=== PATIENT | female | born 1980 ===

== ENCOUNTER 2017-02-12 13:22 | Emergency (ER) | payer BC, MEDICAID ==
[2017-02-12 13:22] VITALS: BMI 19.8
[2017-02-12 13:26] VITALS: BP 111/75; TEMP 98.9
--- NOTE | 2017-02-12 13:47 | C.PDOC ---
History Of Present Illness 36 yo female come in for evaluation of pain on urination gradually developed for psat few days. Pt reports, today noted blood in urine. Otherwise, pt denies fever, chills, abd. apin, N/V/D, back pain, vaginal irritation or discharges. Ambulate to Ed for evaluation, not in any apparent distress. Time Seen by Provider: 02/12/17 13:36 Chief Complaint (Nursing): Female Genitourinary History Per: Patient Past Medical History Reviewed: Historical Data, Nursing Documentation, Vital Signs Vital Signs: Last Vital Signs Temp 98.9 F 02/12/17 13:24 Pulse 90 02/12/17 13:24 Resp 16 02/12/17 13:24 BP 111/75 02/12/17 13:24 Pulse Ox 100 02/12/17 13:47 - Medical History PMH: No Chronic Diseases Surgical History: Appendectomy (2014) - [employer] Procedures INJECT/INFUSE NEC (12/11/06) LAPAROSCOP APPENDECTOMY (09/10/13) Family History: States: Unknown Family Hx - Social History Hx Tobacco Use: No Hx Alcohol Use: No Hx Substance Use: No - Immunization History Hx Tetanus Toxoid Vaccination: No Hx Influenza Vaccination: No Hx Pneumococcal Vaccination: No Review Of Systems Except As Marked, All Systems Reviewed And Found Negative. Constitutional: Negative for: Fever, Chills ENT: Negative for: Throat Pain Gastrointestinal: Negative for: Nausea, Vomiting, Abdominal Pain, Diarrhea Genitourinary: Positive for: Dysuria, Frequency, Hematuria. Negative for: Vaginal Discharge, Vaginal Bleeding Musculoskeletal: Negative for: Back Pain Skin: Negative for: Rash Neurological: Negative for: Weakness, Numbness, Headache Physical Exam - Physical Exam Appears: Well, No Acute Distress Skin: Normal Color, Warm, Dry, No Rash Eye(s): bilateral: PERRL Nose: No Flaring, No Discharge Oral Mucosa: Moist Throat: No Erythema Neck: Supple Cardiovascular: Rhythm Regular Respiratory: No Decreased Breath Sounds, No Accessory Muscle Use, No Stridor Gastrointestinal/Abdominal: Soft, Tenderness (mild suprapubic), No Distention, No Guarding Back: No CVA Tenderness Extremity: No Swelling Neurological/Psych: Oriented x3, Normal Speech ED Course And Treatment O2 Sat by Pulse Oximetry: 100 Pulse Ox Interpretation: Normal Progress Note: On re-evaluation, pt is afebrile, hemodynamicaly stable. Non- toxic. Tolerate Po well in ED. ENT: no acute findings. neck: Supple. ABd: benign. Back: (-) CVA tenderness. UA reults review and c/w UTI. UCx-pending. Pt advised and ref. to F/u with PMD, GLOBAL LEAD in 2-3 days for re-eavl. return if any new changes. Disposition Counseled Patient/Family Regarding: Studies Performed, Diagnosis, Need For Followup, Rx Given - Disposition [facility] Disposition: HOME/ ROUTINE Disposition Time: 14:08 Condition: STABLE Additional Instructions: ENCOURAGE FLUIDS TAKE MEDICATION PRESCRIBED CRANBERRY SUPPLEMENT FOLLOW UP WITH GLOBAL LEAD IN 2-3 DAYS FOR RE-EVALUATION. RETURN TO ED IF ANY WORSENING OR NEW CHANGES. Prescriptions: Cranberry Fruit Extract [Cranberry] 500 mg PO BID #14 capsule Nitrofurantoin Macrocrystals [Macrobid] 1 cap PO BID #14 cap Phenazopyridine [Phenazopyridine HCl] 200 mg PO Q12 #6 tab Instructions: Urinary Tract Infection in Women (ED) Forms: [facility] (Kazakh) - Clinical Impression Clinical Impression: UTI (urinary tract infection)
[2017-02-12 14:05] LABS: RBC URINE 91 /hpf (0-3); URINE BACTERIA OCC (<OCC); URINE BILIRUBIN NEGATIVE (NEGATIVE); URINE BLOOD 3+ (NEGATIVE); URINE COLOR Yellow (YELLOW); URINE GLUCOSE (UA) NORMAL (Normal); URINE KETONE TRACE mg/dL (NEGATIVE); URINE LEUKOCYTE ESTERASE 3+ Leu/uL (Negative); URINE PROTEIN 2+ mg/dL (NEGATIVE); URINE UROBILINOGEN NORMAL mg/dL (0.2-1.0); WBC URINE 481 /hpf (0-5)
[2017-02-12 14:45] VITALS: PULSE 82; RESP 18; O2SAT 99
== END 2017-02-12 14:45 | disposition home or self-care (01) ==
LOC: C.ER 13:22
DX: N39.0 Urinary tract infection, site not specified (principal)

== ENCOUNTER 2017-06-15 18:12 | Emergency (ER) | payer BC, MEDICAID ==
[2017-06-15 18:12] VITALS: BMI 19.8
--- NOTE | 2017-06-15 19:03 | C.PDOC ---
History Of Present Illness 36 y/o female complains of fever, chills, cough, headache, and body aches x 1 day. Denies sore throat, n/v/d. neck stiffness. Time Seen by Provider: 06/15/17 18:47 Chief Complaint (Nursing): Flu-like Symptoms History Per: Patient History/Exam Limitations: no limitations Onset/Duration Of Symptoms: Days Current Symptoms Are (Timing): Still Present Associated Symptoms: Fever, Chills. denies: Nausea, Vomiting, Diarrhea Severity: Moderate Past Medical History Reviewed: Historical Data, Nursing Documentation, Vital Signs Vital Signs: Last Vital Signs Temp 102 F H 06/15/17 19:07 Pulse 118 H 06/15/17 19:07 Resp 16 06/15/17 19:07 BP 103/65 06/15/17 19:07 Pulse Ox 99 06/15/17 19:16 - Medical History PMH: No Chronic Diseases Surgical History: Appendectomy (2014) - [employer] Procedures INJECT/INFUSE NEC (12/11/06) LAPAROSCOP APPENDECTOMY (09/10/13) Family History: States: Unknown Family Hx - Social History Hx Tobacco Use: No Hx Alcohol Use: No Hx Substance Use: No - Immunization History Hx Tetanus Toxoid Vaccination: No Hx Influenza Vaccination: No Hx Pneumococcal Vaccination: No Review Of Systems Constitutional: Positive for: Fever, Chills, Malaise ENT: Negative for: Throat Pain Respiratory: Negative for: Cough Gastrointestinal: Negative for: Nausea, Vomiting, Abdominal Pain, Diarrhea Neurological: Negative for: Headache Physical Exam - Physical Exam Appears: Non-toxic, No Acute Distress, Other (very uncomfortable) Skin: Warm (hot), Dry Head: Atraumatic, Normacephalic Eye(s): bilateral: Normal Inspection Ear(s): Bilateral: Normal Nose: No Discharge Oral Mucosa: Moist Throat: No Erythema, No Exudate Neck: Supple Chest: Symmetrical, No Tenderness Cardiovascular: Rhythm Irregular (tachycardiac), No Murmur Respiratory: No Decreased Breath Sounds, No Wheezing Gastrointestinal/Abdominal: Soft, No Tenderness Neurological/Psych: Oriented x3, Normal Speech, Normal Cognition, Normal Motor, Normal Sensation ED Course And Treatment O2 Sat by Pulse Oximetry: 99 (RA) Pulse Ox Interpretation: Normal Medical Decision Making Medical Decision Making: pt with flu like symptomss x 1 days, d/c with tamiflu Disposition Counseled Patient/Family Regarding: Diagnosis, Need For Followup, Rx Given - Disposition Referrals: Kuldeep Paul, YULIA, PORTFOLIO ANALYST [Advanced Practice Nurse] - Disposition: HOME/ ROUTINE Disposition Time: 19:13 Condition: STABLE Additional Instructions: Drink lots of fluids, lots of bed rest. Take Tylenol or motrin every 4-6 hours for pain or fever. Get a thermometer to check temperature. Take tamiflu as prescribed. Follow up with Dr Paul in a few days. 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 - Scribe Statement The provider has reviewed the documentation as recorded by the Teodoro Church Provider Attestation All medical record entries made by the Carolyneibtony were at my direction and personally dictated by me. I have reviewed the chart and agree that the record accurately reflects my personal performance of the history, physical exam, medical decision making, and the department course for this patient. I have also personally directed, reviewed, and agree with the discharge instructions and disposition.
[2017-06-15 19:07] VITALS: BP 103/65; PULSE 118; RESP 16; TEMP 102
[2017-06-15 19:14] VITALS: O2SAT 99
== END 2017-06-15 19:21 | disposition home or self-care (01) ==
LOC: C.ER 18:12
DX: J11.1 Influenza due to unidentified influenza virus with other respiratory manifestations (principal)

== ENCOUNTER 2017-06-18 17:46 | Emergency (ER) | payer BC, MEDICAID ==
[2017-06-18 17:56] VITALS: BP 108/69; PULSE 113; RESP 18; TEMP 100.3; O2SAT 100; BMI 21.4
--- NOTE | 2017-06-18 18:46 | C.PDOC ---
History Of Present Illness 36 year old female presents to the emergency department complaining of fever and body aches for the past 4 days. Patient took Motrin and Tylenol relieving her fever. Reports fever having returned after the third day of using Tamiflu. Denies any vomiting, diarrhea, or shortness of breath. Patient has had no recent travel or sick contacts. PMD: Dr. Kuldeep Paul Chief Complaint (Nursing): Flu-like Symptoms History Per: Patient History/Exam Limitations: no limitations Onset/Duration Of Symptoms: Days (x4) Current Symptoms Are (Timing): Still Present Associated Symptoms: Fever Past Medical History Reviewed: Historical Data, Nursing Documentation, Vital Signs Vital Signs: Last Vital Signs Temp 100.3 F H 06/18/17 17:50 Pulse 113 H 06/18/17 17:50 Resp 18 06/18/17 17:50 BP 108/69 06/18/17 17:50 Pulse Ox 100 06/18/17 18:46 - Medical History PMH: No Chronic Diseases Surgical History: App[facility] (2014), [place] [facility] Procedures INJECT/INFUSE NEC (12/11/06) LAPAROSCOP APPENDECTOMY (09/10/13) Family History: States: Unknown Family Hx - Social History Hx Tobacco Use: No Hx Alcohol Use: No Hx Substance Use: No - Immunization History Hx Tetanus Toxoid Vaccination: No Hx Influenza Vaccination: No Hx Pneumococcal Vaccination: No Review Of Systems Except As Marked, All Systems Reviewed And Found Negative. Constitutional: Positive for: Fever, Other (Body Aches) Cardiovascular: Negative for: Chest Pain Respiratory: Negative for: Shortness of Breath Gastrointestinal: Negative for: Nausea, Vomiting, Diarrhea Physical Exam - Physical Exam Appears: Non-toxic, No Acute Distress Skin: Normal Color, Warm, Dry Head: Atraumatic, Normacephalic Eye(s): bilateral: Normal Inspection, PERRL, EOMI Nose: Normal Throat: Normal Neck: Normal Cardiovascular: Rhythm Regular, No Murmur Respiratory: Normal Breath Sounds, No Accessory Muscle Use, No Wheezing Gastrointestinal/Abdominal: Normal Exam, No Tenderness, No Distention Back: Normal Inspection Extremity: Normal ROM Neurological/Psych: Oriented x3 ED Course And Treatment O2 Sat by Pulse Oximetry: 100 (RA) Pulse Ox Interpretation: Normal Medical Decision Making Medical Decision Making: Discharge Time: 18:36 Upon reevaluation, patient is feeling better and was discharged home. Patient was advised to follow up with a primary medical doctor. Disposition - Disposition Referrals: Kemar Yeboah Aixakevin, [Non-Staff] - Disposition: HOME/ ROUTINE Disposition Time: 18:30 Condition: GOOD Additional Instructions: Thank you for letting us take care of you today. The emergency medical care you received today was directed at your acute symptoms. If you were prescribed any medication, please fill it and take as directed. It may take several days for your symptoms to resolve. Return to the Emergency Department if your symptoms worsen, do not improve, or if you have any other problems. Please contact your doctor or call one of the physicians/clinics you have been referred to that are listed on the Patient Visit Information form that is included in your discharge packet. Bring any paperwork you were given at discharge with you along with any medications you are taking to your follow up visit. Our treatment cannot replace ongoing medical care by a primary care provider (PCP) outside of the emergency department. Thank you for allowing the [facility] team to be part of your care today. 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 Prescriptions: Cyclobenzaprine [Cyclobenzaprine HCl] 10 mg PO Q8 PRN #20 tab PRN Reason: Muscle Spasm Instructions: Influenza (ED) Forms: [facility] (Sudanese), Work Excuse - Clinical Impression Clinical Impression: Influenza - Scribe Statement The provider has reviewed the documentation as recorded by the Scribe Alpa Fox All medical record entries made by the Scribe were at my direction and personally dictated by me. I have reviewed the chart and agree that the record accurately reflects my personal performance of the history, physical exam, medical decision making, and the department course for this patient. I have also personally directed, reviewed, and agree with the discharge instructions and disposition.
== END 2017-06-18 18:37 | disposition home or self-care (01) ==
LOC: C.ER 17:46
DX: J11.1 Influenza due to unidentified influenza virus with other respiratory manifestations (principal)